=== PATIENT | male | born 1970 | race Caucasian/White ===

== ENCOUNTER → 2021-12-09 | Outpatient (CLI) | payer OTHER | LOC: KOH-I 11:21 | DX: R53.83 Other fatigue (principal); R06.83 Snoring; R03.0 Elevated blood-pressure reading, without diagnosis of hypertension; R94.4 Abnormal results of kidney function studies; E11.65 Type 2 diabetes mellitus with hyperglycemia; E11.42 Type 2 diabetes mellitus with diabetic polyneuropathy; N52.9 Male erectile dysfunction, unspecified; M25.551 Pain in right hip; G47.10 Hypersomnia, unspecified; E66.9 Obesity, unspecified; Z79.899 Other long term (current) drug therapy | CPT/HCPCS: 71046 ==